=== PATIENT | female | born 1985 | race Caucasian/White ===

== ENCOUNTER 2023-03-22 10:30 | Emergency (ER) | payer OTHER, SELFPAY ==
[2023-03-22 10:36] VITALS: BP 167/95; PULSE 67; RESP 16; TEMP 36.6; O2SAT 98; BMI 40.7
--- NOTE | 2023-03-22 11:22 | CT_ITS ---
[address] [address] Patient Name: CITLALLI MAIN MRN: [id number] date: 1985 Sex: F Assigned Patient Location: ER Current Patient Location: Accession/Order Number: [id number] Exam Date: 03/22/2023 12:00 Report Date: 03/22/2023 12:44 At the request of: MILADIS PICKENS Procedure: CT abdomen pelvis w con EXAMINATION: CT ABDOMEN AND PELVIS WITH IV CONTRAST CLINICAL HISTORY: Right upper quadrant and epigastric pain TECHNIQUE: CT of the abdomen and pelvis was performed using standard technique, scanning from just above the dome of the diaphragm to the symphysis pubis. All CT scans at this facility use dose modulation, iterative reconstruction, and/or weight based dosing when appropriate to reduce radiation dose to as low as reasonably achievable. Contrast: IV: 100 ml of Omnipaque 350 COMPARISON: None. RESULT: Liver: No mass. Hepatomegaly, craniocaudal length 26.6 cm. Diffuse hepatic steatosis Biliary: No bile duct dilation. Gallbladder is absent. Spleen: No mass. No splenomegaly. Pancreas: No mass or duct dilation. Adrenals: No mass. Kidneys: 7 mm right interpolar region and 4 mm inferior pole nonobstructing calculi. No hydronephrosis. No suspicious renal mass or abnormal enhancement. GI tract: No dilation or wall thickening. Appendix is unremarkable. Moderate colonic stool. Lymph nodes: No abdominal or pelvic lymphadenopathy. Mesentery/Peritoneum: No ascites or mass. Retroperitoneum: No mass. Vasculature: The celiac axis and SMA are patent. The portal vein and branches, splenic vein, SMV, and hepatic veins are patent. No abdominal aortic aneurysm. Pelvis: No mass, ascites or fluid collection. Urinary bladder is unremarkable. Bones/Soft Tissues: No significant finding. Lower thorax: Unremarkable. IMPRESSION: Hepatomegaly, craniocaudal length 26.6 cm and diffuse hepatic steatosis. No focal lesion. 7 mm right interpolar region and 4 mm right inferior pole nonobstructing calculi. No hydronephrosis. Electronically authenticated by: RANDI DOE Date: 03/22/2023 12:44
--- NOTE | 2023-03-22 11:23 | ED.ABDPAIN1 ---
HPI - Abdominal Pain General Chief Complaint: Abdominal Pain Stated Complaint: STOMACH PAIN Time Seen by Provider: 03/22/23 10:52 Source: patient Limitations: no limitations History of Present Illness HPI narrative: Patient presents to emergency department complaining of abdominal pain. She states she's had pain ongoing for the last month. She saw her primary care doctor and is on a PPI. She had outpatient blood work done which showed her liver function tests to be slightly elevated. The patient does not drink any alcohol. She also has a history of endometrial cancer. The patient had a cholecystectomy. She is concerned because her abdomen has swollen she's gained 3 pounds in the last week and last night she had a lot of abdominal pain and could not sleep. Her primary care doctor order a CAT scan as an outpatient and week ago and she still has not been able to schedule it at pending sale to [facility]. Patient states she has chronic diarrhea that is not new for her. She is a diabetic states that she has been drinking plenty of fluids does not feel that she is dehydrated and does not want to have any blood work repeated here as she already had all of the blood work done 2 days ago.She shows me on her electronic chart from [facility] her white count is 10 her hemoglobin is 12. Electrolytes are unremarkable she has slightly elevated AST and ALTs hepatitis panel was negative for Hepatitis b and c. Patient denies any vomiting. She denies any fever, chills, or cough. She denies any flank pain, hematuria, dysuria. Related Data Home Medications Medication Instructions Recorded Confirmed alprazolam 0.25 mg tablet 0.25 mg PO DAILY 03/22/23 03/22/23 budesonide-formoterol HFA 80 1 puff inhalation Q12H 03/22/23 03/22/23 mcg-4.5 mcg/actuation aerosol inhaler (Symbicort) aijlheqdkv-asbnwkrozngeb-onndrzeq 1 tab PO Q6H PRN pain 03/22/23 03/22/23 50 mg-325 mg-40 mg tablet cariprazine 1.5 mg capsule 1.5 mg PO DAILY 03/22/23 03/22/23 (Vraylar) cephalexin 500 mg capsule 500 mg PO Q12H 03/22/23 03/22/23 dapagliflozin 10 mg tablet 10 mg PO DAILY 03/22/23 03/22/23 (Farxiga) dulaglutide 0.75 mg/0.5 mL 0.75 mg subcut .weekly 03/22/23 03/22/23 subcutaneous pen injector (Trulicity) lisinopril 5 mg tablet 5 mg PO DAILY 03/22/23 03/22/23 metformin 500 mg tablet 500 mg PO BID 03/22/23 03/22/23 pantoprazole 40 mg tablet,delayed 40 mg PO DAILY 03/22/23 03/22/23 release pravastatin 20 mg tablet 20 mg PO DAILY 03/22/23 03/22/23 semaglutide 0.25 mg or 0.5 mg (2 0.25 mg subcut .weekly 03/22/23 03/22/23 mg/3 mL) subcutaneous pen injector (Ozempic) Allergies Allergy/AdvReac Type Severity Reaction Status Date / Time No Known Drug Allergies Allergy Verified 03/22/23 10:44 Review of Systems ROS Status of ROS 10 or more systems reviewed and unremarkable except as noted in history and below [facility] Medical History (Updated 03/22/23 @ 12:59 by Binta Pelletier MD) Social History Smoking status: Current every day smoker Exam Narrative Exam Narrative: Nurses notes and vital signs reviewed and patient is not hypoxic. General: Nontoxic, Well-appearing and in no apparent distress. Skin: Warm, dry, no pallor noted. No Rash Head: Normocephalic, atraumatic. Neck: Supple, non-tender. Eye: Pupils are equal, round and EOMI. No scleral icterus. Ears, Nose, Mouth, and Throat: TM clear, no posterior oropharynx erythema or nasal mucosal hypertrophy, uvula is mid-line Oral mucosa is moist Cardiovascular: Regular Rate and Rhythm without murmur, gallop or rub. Respiratory: No accessory muscle use or respiratory distress. Lungs are clear to auscultation, no wheezing, rales or rhonchi Chest Wall: no tenderness Back: No midline thoracic or lumbar vertebral tenderness. No CVA tenderness Musculoskeletal: normal ROM, no calf or popliteal tenderness, no lower extremity edema/swelling GI: obese, ascites, non-distended. Normal bowel sounds. No masses appreciated. No tenderness to palpation. No rebound, guarding, or rigidity noted. Neurological: A&O x4. No cranial nerve dysfunction observed. No truncal ataxia. Moves all extremities. Sensation intact. Psychiatric: Cooperative and interactive. Normal mood and affect. Constitutional Vital Signs - 24 hr 03/22/23 10:36 Temperature 97.8 F Pulse Rate [Monitor] 67 Respiratory Rate 16 Blood Pressure [Right Arm] 167/95 H Pulse Oximetry 98 Oxygen Delivery Method Room Air Course Vital Signs Vital signs: Vital Signs Temperature 97.8 F 03/22/23 10:36 Pulse Rate 67 03/22/23 10:36 Respiratory Rate 16 03/22/23 10:36 Blood Pressure 167/95 H 03/22/23 10:36 Pulse Oximetry 98 03/22/23 10:36 Oxygen Delivery Method Room Air 03/22/23 10:36 Temperature 97.8 F 03/22/23 10:36 Pulse Rate 67 03/22/23 10:36 Respiratory Rate 16 03/22/23 10:36 Blood Pressure 167/95 H 03/22/23 10:36 Pulse Oximetry 98 03/22/23 10:36 Oxygen Delivery Method Room Air 03/22/23 10:36 MDM - Abdominal Pain MDM Narrative Medical decision making narrative: All results discussed with patient. Patient will follow-up with primary care doctor. At this time the patient is without objective evidence of an acute process requiring hospitalization or inpatient management. The patient has remained hemodynamically stable. No additional indication for emergent studies at this time. I answered all questions. Discussed discharge instructions including standard anticipatory guidance and what should prompt a return to the emergency department, including if they get worse are not getting better or develops any new or concerning symptoms. I've given them specific time frame in which to follow-up, and who to follow-up with. The patient demonstrates understanding. Patient is nontoxic and stable for discharge with outpatient follow-up. This note was created with the assistance of a speech recognition program. Although the intention is to generate documents that actually reflects the content of the visit, no guarantees can be provided that every mistake has been identified and corrected by editing. Differential Diagnosis Differential diagnosis: Likely abdominal pain, constipation and pancreatitis Lab Data Attestation: I reviewed the patient's lab results. Discharge Plan Discharge Chief Complaint: Abdominal Pain Clinical Impression: Hepatic steatosis Patient Disposition: Home, Self-Care Time of Disposition Decision: 12:58 Condition: Good Mode of Transportation: Private Vehicle Prescriptions / Home Meds: No Action alprazolam 0.25 mg tablet 0.25 mg PO DAILY budesonide-formoterol [Symbicort] 80-4.5 mcg/actuation HFA aerosol inhaler 1 puff INHALATION Q12H ivywrtgsde-daatfwxtahgfa-ytmw 50-325-40 mg tablet 1 tab PO Q6H PRN (Reason: pain) Vraylar 1.5 mg capsule 1.5 mg PO DAILY cephalexin 500 mg capsule 500 mg PO Q12H Farxiga 10 mg tablet 10 mg PO DAILY Trulicity 0.75 mg/0.5 mL pen injector 0.75 mg SUBCUT .weekly lisinopril 5 mg tablet 5 mg PO DAILY metformin 500 mg tablet 500 mg PO BID pantoprazole 40 mg tablet,delayed release (DR/EC) 40 mg PO DAILY pravastatin 20 mg tablet 20 mg PO DAILY Ozempic 0.25 mg or 0.5 mg (2 mg/3 mL) pen injector 0.25 mg SUBCUT .weekly Instructions: Non-Alcoholic Fatty Liver Disease (ED) Stand Alone Forms: Portal Instructions Referrals: Physician,Non-Staff, MD [Primary Care Provider] - 1 week
== END 2023-03-22 13:13 | disposition home or self-care (01) ==
PROVIDERS: Emergency Provider Emergency Medicine
DX: K76.0 Fatty (change of) liver, not elsewhere classified (principal); Z90.49 Acquired absence of other specified parts of digestive tract; Z85.89 Personal history of malignant neoplasm of other organs and systems; Z79.899 Other long term (current) drug therapy; Z79.84 Long term (current) use of oral hypoglycemic drugs; F17.210 Nicotine dependence, cigarettes, uncomplicated
CPT/HCPCS: 74177; 99284; Q9967